=== PATIENT | female | born 1970 | race Caucasian/White ===

== ENCOUNTER 2017-05-12 23:59 | Emergency (ER) | payer BC ==
[~2017-05-12] VITALS: Ht 167.6 cm; Wt 136.1 kg
[2017-05-13] MEDS ORDERED: PROVIL200 MG PO (00:21)
[2017-05-13] MEDS ORDERED: PROAIR HFA8.5 GM INH (00:21)
--- NOTE | 2017-05-13 17:03 | EKG ---
[facility] [address] [facility] [place] [address] Signed Sinus rhythm with 1st degree AV block Otherwise normal ECG No previous ECGs available Confirmed by ELANA HAMILTON MD ([id number]) on 05/13/2017 5:03:05 PM Electronically Signed By: ELANA HAMILTON MD 05/13/17 1703 PATIENT NAME: RAI FONTANEZN Electrocardiogram DATE OF : 74 PHYSICIAN: ELANA HAMILTON MD REPORT #: [id number] REPORT IS CONFIDENTIAL AND NOT TO BE RELEASED WITHOUT AUTHORIZATION
== END 2017-05-13 02:23 | disposition home or self-care (01) ==
LOC: ED 23:59
DX: F41.8 Other specified anxiety disorders (principal); J45.909 Unspecified asthma, uncomplicated; F17.200 Nicotine dependence, unspecified, uncomplicated; Z87.442 Personal history of urinary calculi; Z90.49 Acquired absence of other specified parts of digestive tract; Z88.8 Allergy status to other drugs, medicaments and biological substances; Z88.1 Allergy status to other antibiotic agents; Z88.2 Allergy status to sulfonamides; Z79.899 Other long term (current) drug therapy
CPT/HCPCS: 36415; 71010; 80053; 84484; 85025; 85379; 93005; 93010; 96372; 99284; J2060

== ENCOUNTER 2018-05-24 13:29 | Emergency (ER) | payer OTHER ==
[~2018-05-24] VITALS: Ht 167.6 cm; Wt 136.1 kg
[~2018-05-24 13:29] MED LIST: PROAIR HFA8.5 GM INH; PROVIL200 MG PO
[2018-05-24] MEDS ORDERED: KETOROLAC TROME10 MG PO (14:12)
== END 2018-05-24 14:21 | disposition home or self-care (01) ==
LOC: ED 13:29
DX: S83.92XA Sprain of unspecified site of left knee, initial encounter (principal); F17.200 Nicotine dependence, unspecified, uncomplicated; E66.01 Morbid (severe) obesity due to excess calories; Z88.1 Allergy status to other antibiotic agents; Z88.2 Allergy status to sulfonamides; Z88.8 Allergy status to other drugs, medicaments and biological substances; X58.XXXA Exposure to other specified factors, initial encounter
CPT/HCPCS: 73560; 96372; 99283; J1885

== ENCOUNTER → 2019-03-21 | Emergency (ER) | payer OTHER ==
[~2019-03-21] VITALS: Ht 170.2 cm; Wt 172.4 kg
[~2019-03-21] MED LIST changes: +CENTRUM VITAM200 MCG PO; +KETOROLAC TROME10 MG PO; +PENICILLIN V P500 MG PO; +VITAMIN D250000 UNIT PO; +VITAMIN D32000 UNIT PO
--- NOTE | 2019-03-21 17:28 | EKG ---
[facility] [address] [facility] [place] [address] Signed Supraventricular tachycardia Nonspecific ST abnormality Abnormal ECG No previous ECGs available Confirmed by RAEGAN KOWALSKI DO ([id number]) on 03/21/2019 5:28:35 PM Electronically Signed By: RAEGAN KOWALSKI DO 03/21/19 1728 PATIENT NAME: RAI FONTANEZ Electrocardiogram DATE OF : 74 PHYSICIAN: RAEGAN KOWALSKI DO REPORT #: [id number] REPORT IS CONFIDENTIAL AND NOT TO BE RELEASED WITHOUT AUTHORIZATION
== END ==
LOC: ED 00:18
DX: F41.0 Panic disorder [episodic paroxysmal anxiety] (principal); J45.909 Unspecified asthma, uncomplicated; E66.01 Morbid (severe) obesity due to excess calories; F17.200 Nicotine dependence, unspecified, uncomplicated; Z88.8 Allergy status to other drugs, medicaments and biological substances; Z88.2 Allergy status to sulfonamides; Z88.1 Allergy status to other antibiotic agents; Z79.899 Other long term (current) drug therapy
CPT/HCPCS: 36415; 71045; 80053; 84484; 85025; 93005; 93010; 96361; 96374; 99285-25; J2060; J7030

== ENCOUNTER 2019-05-21 14:56 | Emergency (ER) | payer OTHER ==
[~2019-05-21] VITALS: Ht 170.2 cm; Wt 172.4 kg
== END 2019-05-21 16:51 | disposition home or self-care (01) ==
LOC: ED 14:56
DX: T63.441A Toxic effect of venom of bees, accidental (unintentional), initial encounter (principal); J45.909 Unspecified asthma, uncomplicated; Z87.442 Personal history of urinary calculi; Z87.891 Personal history of nicotine dependence; Z88.1 Allergy status to other antibiotic agents; Z88.2 Allergy status to sulfonamides; Z88.5 Allergy status to narcotic agent; Z88.0 Allergy status to penicillin
CPT/HCPCS: 99282

== ENCOUNTER 2021-08-30 15:16 | Emergency (ER) | payer OTHER ==
[~2021-08-30] VITALS: Ht 170.2 cm; Wt 195.0 kg
--- OUTSIDE RECORDS SUMMARY | 2021-08-30 15:18 | XMS ---
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 Risa has no Care Guidelines for this patient. Ruma VISIT COUNT (12 MO.) 1 [facility] TOTAL 1 NOTE: Visits indicate total known visits. ED/C VISIT TRACKING (12 MO.) 08/30/2021 15:16 [facility] [place] TYPE: Emergency COMPLAINT: - FALL INPATIENT VISIT TRACKING (12 MO.) No inpatient visits to display in this time frame [id number]
[2021-08-30] MEDS ORDERED: AMITRIPTYLINE150 MG PO (16:03)
[2021-08-30] MEDS ORDERED: DULOXETINE HCL60 MG PO (16:03)
[2021-08-30] MEDS ORDERED: METOPROLOL SUCC25 MG PO (16:03)
[2021-08-30] MEDS ORDERED: CHLORTHALIDONE25 MG (16:04)
[2021-08-30] MEDS ORDERED: BUSPIRONE HCL10 MG PO (16:05)
[2021-08-30] MEDS ORDERED: PRIMIDONE50 MG PO (16:05)
[2021-08-30] MEDS ORDERED: GABAPENTIN300 MG PO (16:05)
--- NOTE | 2021-08-30 21:22 | EKG ---
[facility] [address] [facility] [place], [place] [address] Signed Sinus rhythm with 1st degree AV block Otherwise normal ECG When compared with ECG of 21-MAR-2019 00:22, ND interval has increased Confirmed by RAEGAN KOWALSKI DO ([id number]) on 08/30/2021 9:22:10 PM Electronically Signed By: RAEGAN KOWALSKI DO 08/30/212121 PATIENT NAME: RAI FONTANEZ Electrocardiogram DATE OF : 74 PHYSICIAN: RAEGAN KOWALSKI DO REPORT #: [id number] REPORT IS CONFIDENTIAL AND NOT TO BE RELEASED WITHOUT AUTHORIZATION
== END 2021-08-30 19:14 | disposition home or self-care (01) ==
LOC: ED 15:16
DX: S09.90XA Unspecified injury of head, initial encounter (principal); S40.011A Contusion of right shoulder, initial encounter; J45.909 Unspecified asthma, uncomplicated; E66.01 Morbid (severe) obesity due to excess calories; Z87.891 Personal history of nicotine dependence; Z88.8 Allergy status to other drugs, medicaments and biological substances; Z88.2 Allergy status to sulfonamides; Z88.1 Allergy status to other antibiotic agents; Z79.899 Other long term (current) drug therapy; R55 Syncope and collapse; W18.30XA Fall on same level, unspecified, initial encounter
CPT/HCPCS: 70450; 72125; 73030; 80053; 85025; 93005; 93010; 99285-25; A9270

== ENCOUNTER 2022-05-02 14:27 | Emergency (ER) | payer OTHER ==
[~2022-05-02] VITALS: Ht 170.2 cm; Wt 195.0 kg
[~2022-05-02 14:27] MED LIST changes: +AMITRIPTYLINE150 MG PO; +BUSPIRONE HCL10 MG PO; +CHLORTHALIDONE25 MG; +DULOXETINE HCL60 MG PO; +GABAPENTIN300 MG PO; +METOPROLOL SUCC25 MG PO; +PRIMIDONE50 MG PO
--- OUTSIDE RECORDS SUMMARY | 2022-05-02 14:30 | XMS ---
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 Risa has no Care Guidelines for this patient. Ruma VISIT COUNT (12 MO.) 2 [facility] TOTAL 2 NOTE: Visits indicate total known visits. ED/C VISIT TRACKING (12 MO.) 05/02/2022 14:29 [facility] [place] TYPE: Emergency COMPLAINT: - R LEG LUMP, L FOOT SWOLLEN, SOB 08/30/2021 15:16 [facility] [place] TYPE: Emergency COMPLAINT: - FALL DIAGNOSES: - Fall on same level, unspecified, initial encounter - Unspecified injury of head, initial encounter - Allergy status to other antibiotic agents - Other detention (current) drug therapy - Allergy status to other drugs, medicaments and biological substances - Pain in right shoulder - Syncope and collapse - Contusion of right shoulder, initial encounter - Personal history of nicotine dependence - Morbid (severe) obesity due to excess calories - Allergy status to sulfonamides - Unspecified asthma, uncomplicated INPATIENT VISIT TRACKING (12 MO.) No inpatient visits to display in this time frame [id number]
[2022-05-02] MEDS ORDERED: ELIQUIS5 MG PO (20:26)
--- NOTE | 2022-05-03 07:45 | EKG ---
[facility] [address] [place], [place] [address] Signed Sinus tachycardia with 1st degree AV block Otherwise normal ECG When compared with ECG of 30-AUG-2021 18:08, No significant change was found Confirmed by RAFAELA SMITH MD ([id number]) on 05/03/2022 7:44:54 AM Electronically Signed By: RAFAELA SMITH MD 05/03/22 0745 PATIENT NAME: RAI FONTANEZ Electrocardiogram DATE OF : 74 PHYSICIAN: RAFAELA SMITH MD REPORT #: [id number] REPORT IS CONFIDENTIAL AND NOT TO BE RELEASED WITHOUT AUTHORIZATION
== END 2022-05-02 21:09 | disposition home or self-care (01) ==
LOC: ED 14:27
DX: I26.99 Other pulmonary embolism without acute cor pulmonale (principal); J45.909 Unspecified asthma, uncomplicated; E66.01 Morbid (severe) obesity due to excess calories; Z87.891 Personal history of nicotine dependence; Z88.8 Allergy status to other drugs, medicaments and biological substances; Z88.2 Allergy status to sulfonamides; Z88.1 Allergy status to other antibiotic agents; Z79.899 Other long term (current) drug therapy
CPT/HCPCS: 36415; 71045; 71260; 80053; 83880; 85025; 85379; 93005; 93010; 99285-25; Q9967

== ENCOUNTER 2022-09-08 20:40 | Emergency (ER) | payer OTHER ==
[~2022-09-08] VITALS: Ht 170.2 cm; Wt 195.0 kg
[~2022-09-08 20:40] MED LIST changes: +ELIQUIS5 MG PO
--- OUTSIDE RECORDS SUMMARY | 2022-09-08 20:44 | XMS ---
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 - Patient with suicidal and/or homicidal ideations eloped. - Patient eloped with IV in place. Details: PATIENT LWBS [facility] There are no care providers on record at this time. Risa has no Care Guidelines for this patient. E.D. VISIT COUNT (12 MO.) 3 [facility]. TOTAL 3 NOTE: Visits indicate total known visits. ED/[facility] VISIT TRACKING (12 MO.) 09/08/2022 20:[address] [facility] [place] TYPE: Emergency COMPLAINT: - SOB AND COUGH 07/06/2022 20:[address] [facility] [place] [place] TYPE: Emergency COMPLAINT: - L KNEE PAIN 05/02/2022 14:[address] [facility] 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
[2022-09-08] MEDS ORDERED: TAMIFLU75 MG PO (23:39)
[2022-09-08] MEDS ORDERED: PREDNISONE20 MG PO (23:40)
[2022-09-08] MEDS ORDERED: PROAIR HFA8.5 GM INH (23:41)
== END 2022-09-09 00:25 | disposition home or self-care (01) ==
LOC: ED 20:40
DX: J10.1 Influenza due to other identified influenza virus with other respiratory manifestations (principal); E86.0 Dehydration; J45.909 Unspecified asthma, uncomplicated; Z87.891 Personal history of nicotine dependence; Z88.2 Allergy status to sulfonamides; Z88.1 Allergy status to other antibiotic agents; Z88.8 Allergy status to other drugs, medicaments and biological substances; Z79.899 Other long term (current) drug therapy; Z79.01 Long term (current) use of anticoagulants; Z20.822 Contact with and (suspected) exposure to COVID-19
CPT/HCPCS: 36415; 71045; 80053; 85025; 87502; 94640; 96361; 96374; 99285-25; J2930; J7121; U0003

== ENCOUNTER 2023-03-29 10:48 | Emergency (ER) | payer OTHER ==
[~2023-03-29] VITALS: Ht 170.2 cm; Wt 181.4 kg
--- OUTSIDE RECORDS SUMMARY | ~2023-03-29 | XMS | Continuity of Care Document ---
Demographics + + + | Address | [address] | | | [place] [address] | + + + | Preferred Language | Unknown | + + + | Marital Status | | + + + | Shinto Affiliation | Unknown | + + + | Race | White | + + + | Ethnic Group | Not or | + + + Author + + + | Author | [facility] | + + + | Organization | [facility] | + + + | Address | [address] [facility] | | | [place] [address] | + + + | Phone | | + + + Care Team Providers + + + + | Care Construction Foreman Name | Role | Phone | + + + + Unavailable | Unavailable | + + + + Unavailable | Unavailable | + + + + Allergies and Intolerances + + + + + | date | description | facility | type | + + + + + | (no date) | Sulfamethoxazole | [facility] | (unknown) | | | | Hospital | | + + + + + | (no date) | Trimethoprim | [facility] | (unknown) | | | | Hospital | | + + + + + | (no date) | Urticaria | [facility] | (unknown) | | | | Hospital | | + + + + + | (no date) | Mild | [facility] | (unknown) | | | | Hospital | | + + + + + | (no date) | Droperidol | [facility] | (unknown) | | | | Hospital | | + + + + + | (no date) | Ampicillin | [facility] | (unknown) | | | | Hospital | | + + + + + | (no date) | Trimethoprim | [facility] | (unknown) | | | | Hospital | | + + + + + | (no date) | Sulfamethoxazole | [facility] | (unknown) | | | | Hospital | | + + + + + | (no date) | Droperidol | [facility] | (unknown) | | | | Hospital | | + + + + + | (no date) | Ampicillin | [facility] | (unknown) | | | | Hospital | | + + + + + | (no date) | Ampicillin | [facility] | (unknown) | | | | Hospital | | + + + + + | (no date) | Trimethoprim | [facility] | (unknown) | | | | Hospital | | + + + + + | (no date) | Sulfamethoxazole | [facility] | (unknown) | | | | Hospital | | + + + + + | (no date) | Droperidol | [facility] | (unknown) | | | | Hospital | | + + + + + Encounters No information. Functional Status No information. Immunizations No information. Medications + + + + | date | description | facility | + + + + | 2022-05-02 00:00 | APIXABAN | [facility] | + + + + | 2022-07-07 00:00 | ERGOCALCIFEROL (VITAMIN | [facility] | | | D2) | | + + + + | 2022-09-09 00:00 | ERGOCALCIFEROL (VITAMIN | [facility] | | | D2) | | + + + + | 2022-10-25 00:00 | ERGOCALCIFEROL (VITAMIN | [facility] | | | D2) | | + + + + | 2022-07-07 00:00 | PRIMIDONE | [facility] | + + + + | 2022-09-09 00:00 | PRIMIDONE | [facility] | + + + + | 2022-10-25 00:00 | PRIMIDONE | [facility] | + + + + | 2022-09-08 00:00 | OSELTAMIVIR PHOSPHATE | [facility] | + + + + | 2022-07-07 00:00 | GABAPENTIN | [facility] | + + + + | 2022-09-09 00:00 | GABAPENTIN | [facility] | + + + + | 2022-10-25 00:00 | GABAPENTIN | [facility] | + + + + | 2022-07-07 00:00 | IBUPROFEN | [facility] | + + + + | 2022-09-09 00:00 | IBUPROFEN | [facility] | + + + + | 2022-10-25 00:00 | IBUPROFEN | [facility] | + + + + | 2022-09-08 00:00 | predniSONE | [facility] | + + + + | 2022-07-07 00:00 | DULOXETINE HCL | [facility] | + + + + | 2022-09-09 00:00 | DULOXETINE HCL | [facility] | + + + + | 2022-10-25 00:00 | DULOXETINE HCL | [facility] | + + + + | 2022-07-07 00:00 | ALBUTEROL SULFATE | [facility] | + + + + | 2022-09-08 00:00 | ALBUTEROL SULFATE | [facility] | + + + + | 2022-09-09 00:00 | ALBUTEROL SULFATE | [facility] | + + + + | 2022-10-25 00:00 | ALBUTEROL SULFATE | [facility] | + + + + | 2022-07-07 00:00 | CHOLECALCIFEROL (VITAMIN | [facility] | | | D3) | | + + + + | 2022-09-09 00:00 | CHOLECALCIFEROL (VITAMIN | [facility] | | | D3) | | + + + + | 2022-10-25 00:00 | CHOLECALCIFEROL (VITAMIN | [facility] | | | D3) | | + + + + | 2018-05-24 00:00 | KETOROLAC TROMETHAMINE | [facility] | + + + + | 2022-07-07 00:00 | PENICILLIN V POTASSIUM | [facility] | + + + + | 2022-09-09 00:00 | PENICILLIN V POTASSIUM | [facility] | + + + + | 2022-10-25 00:00 | PENICILLIN V POTASSIUM | [facility] | + + + + | 2022-07-07 00:00 | AMITRIPTYLINE HCL | [facility] | + + + + | 2022-09-09 00:00 | AMITRIPTYLINE HCL | [facility] | + + + + | 2022-10-25 00:00 | AMITRIPTYLINE HCL | [facility] | + + + + | 2022-07-07 00:00 | BUSPIRONE HCL | [facility] | + + + + | 2022-09-09 00:00 | BUSPIRONE HCL | [facility] | + + + + | 2022-10-25 00:00 | BUSPIRONE HCL | [facility] | + + + + | 2022-07-07 00:00 | METOPROLOL SUCCINATE | [facility] | + + + + | 2022-09-09 00:00 | METOPROLOL SUCCINATE | [facility] | + + + + | 2022-10-25 00:00 | METOPROLOL SUCCINATE | [facility] | + + + + Problems + + + + | date | description | facility | + + + + | 2017-05-13 00:00 | Situational anxiety | [facility] | + + + + | 2018-05-24 00:00 | Sprain of left knee | [facility] | + + + + | 2019-03-21 00:00 | Panic attack | [facility] | + + + + | 2021-08-30 00:00 | Syncope | [facility] | + + + + | 2021-08-30 00:00 | Injury of head | [facility] | + + + + | 2021-08-30 00:00 | Contusion of shoulder | [facility] | + + + + | 2022-05-02 00:00 | Pulmonary embolism | [facility] | + + + + | 2022-07-07 00:00 | Patient left without being | [facility] | | | seen | | + + + + | 2022-09-08 00:00 | Dehydration | [facility] | + + + + | 2022-09-08 00:00 | Influenza due to influenza | [facility] | | | virus, type A, human | | + + + + Procedures No information. Results/Labs No information. Social History No information. Vital Signs + + + +---------+ | date | measurement | value | units | + + + +---------+ | 2022-07-06 00:00 | BMI | 67.3 | kg/m2 | + + + +---------+ | 2022-07-06 00:00 | BP_diastolic | 90 | mmHg | + + + +---------+ | 2022-07-06 00:00 | BP_systolic | 131 | mmHg | + + + +---------+ | 2022-07-06 00:00 | heart_rate | 113 | /min | + + + +---------+ | 2022-07-06 00:00 | height_metric | 170.18 | cm | + + + +---------+ | 2022-07-06 00:00 | height_standard | 67 | in | + + + +---------+ | 2022-07-06 00:00 | o2_saturation | 94 | % | + + + +---------+ | 2022-07-06 00:00 | respiration_rate | 20 | /min | + + + +---------+ | 2022-07-06 00:00 | temperature_metric | 36.72 | C | | | | | | + + + +---------+ | 2022-07-06 00:00 | | 98.1 | F | | | temperature_standar | | | | | d | | | + + + +---------+ | 2022-07-06 00:00 | weight_metric | 195.04 | kg | + + + +---------+ | 2022-07-06 00:00 | weight_standard | 429.99 | lb | + + + +---------+ | 2022-07-06 00:00 | weight_standard | 430 | lb | + + + +---------+ | 2022-09-08 00:00 | BMI | 67.3 | kg/m2 | + + + +---------+ | 2022-09-08 00:00 | height_metric | 170.18 | cm | + + + +---------+ | 2022-09-08 00:00 | height_standard | 67 | in | + + + +---------+ | 2022-09-08 00:00 | weight_metric | 195.04 | kg | + + + +---------+ | 2022-09-08 00:00 | weight_standard | 429.99 | lb | + + + +---------+ | 2022-09-08 00:00 | weight_standard | 430 | lb | + + + +---------+ | 2022-09-09 00:00 | BP_diastolic | 90 | mmHg | + + + +---------+ | 2022-09-09 00:00 | BP_systolic | 144 | mmHg | + + + +---------+ | 2022-09-09 00:00 | heart_rate | 124 | /min | + + + +---------+ | 2022-09-09 00:00 | o2_saturation | 93 | % | + + + +---------+ | 2022-09-09 00:00 | respiration_rate | 18 | /min | + + + +---------+ | 2022-09-09 00:00 | temperature_metric | 37.39 | C | | | | | | + + + +---------+ | 2022-09-09 00:00 | | 99.3 | F | | | temperature_standar | | | | | d | | | + + + +---------+ | 2022-10-25 00:00 | BMI | 67.3 | kg/m2 | + + + +---------+ | 2022-10-25 00:00 | BP_diastolic | 100 | mmHg | + + + +---------+ | 2022-10-25 00:00 | BP_systolic | 145 | mmHg | + + + +---------+ | 2022-10-25 00:00 | heart_rate | 98 | /min | + + + +---------+ | 2022-10-25 00:00 | height_metric | 170.18 | cm | + + + +---------+ | 2022-10-25 00:00 | height_standard | 67 | in | + + + +---------+ | 2022-10-25 00:00 | o2_saturation | 99 | % | + + + +---------+ | 2022-10-25 00:00 | respiration_rate | 16 | /min | + + + +---------+ | 2022-10-25 00:00 | temperature_metric | 36.67 | C | | | | | | + + + +---------+ | 2022-10-25 00:00 | | 98 | F | | | temperature_standar | | | | | d | | | + + + +---------+ | 2022-10-25 00:00 | weight_metric | 195.04 | kg | + + + +---------+ | 2022-10-25 00:00 | weight_standard | 429.99 | lb | + + + +---------+ | 2022-10-25 00:00 | weight_standard | 430 | lb | + + + +---------+"
--- OUTSIDE RECORDS SUMMARY | ~2023-03-29 | XMS | Continuity of Care Document ---
Demographics + + + | Address | [address] | | | [place] [address] | + + + | Preferred Language | Unknown | + + + | Marital Status | | + + + | Islam Affiliation | Unknown | + + + | Race | White | + + + | Ethnic Group | Not or | + + + Author + + + | Author | [facility] | + + + | Organization | [facility] | + + + | Address | [address] | | | [place] [address] | + + + | Phone | | + + + Care Team Providers + + + + | Care Tracing Lathe Set Up Operator Name | Role | Phone | + + + + Unavailable | Unavailable | + + + + Unavailable | Unavailable | + + + + Allergies and Intolerances + + + + + | date | description | facility | type | + + + + + | (no date) | Sulfamethoxazole | [facility] | (unknown) | | | | Hospital | | + + + + + | (no date) | Trimethoprim | [facility] | (unknown) | | | | Hospital | | + + + + + | (no date) | Urticaria | [facility] | (unknown) | | | | Hospital | | + + + + + | (no date) | Mild | [facility] | (unknown) | | | | Hospital | | + + + + + | (no date) | Droperidol | [facility] | (unknown) | | | | Hospital | | + + + + + | (no date) | Ampicillin | [facility] | (unknown) | | | | Hospital | | + + + + + | (no date) | Trimethoprim | [facility] | (unknown) | | | | Hospital | | + + + + + | (no date) | Sulfamethoxazole | [facility] | (unknown) | | | | Hospital | | + + + + + | (no date) | Droperidol | [facility] | (unknown) | | | | Hospital | | + + + + + | (no date) | Ampicillin | [facility] | (unknown) | | | | Hospital [...] | (no date) | Sulfamethoxazole | [facility] | (unknown) | | [...] + | 2022-05-02 00:00 | APIXABAN | [facility] | + + + + | 2022-07-07 00:00 | ERGOCALCIFEROL (VITAMIN | [facility] | | | D2) | | + + + + | 2022-09-09 00:00 | ERGOCALCIFEROL (VITAMIN | [facility] | | | D2) | | + + + + | 2022-10-25 00:00 | ERGOCALCIFEROL (VITAMIN | [facility] | | | D2) | | + + + + | 2022-07-07 00:00 | PRIMIDONE | [facility] | + + + + | 2022-09-09 00:00 | PRIMIDONE | [facility] | + + + + | 2022-10-25 00:00 | PRIMIDONE | [facility] | + + + + | 2022-09-08 00:00 | OSELTAMIVIR PHOSPHATE | [facility] | + + + + | 2022-07-07 00:00 | GABAPENTIN | [facility] | + + + + | 2022-09-09 00:00 | GABAPENTIN | [facility] | + + + + | 2022-10-25 00:00 | GABAPENTIN | [facility] | + + + + | 2022-07-07 00:00 | IBUPROFEN | [facility] | + + + + | 2022-09-09 00:00 | IBUPROFEN | [facility] | + + + + | 2022-10-25 00:00 | IBUPROFEN | [facility] | + + + + | 2022-09-08 00:00 | predniSONE | [facility] | + + + + | 2022-07-07 00:00 | DULOXETINE HCL | [facility] | + + + + | 2022-09-09 00:00 | DULOXETINE HCL | [facility] | + + + + | 2022-10-25 00:00 | DULOXETINE HCL | [facility] | + + + + | 2022-07-07 00:00 | ALBUTEROL SULFATE | [facility] | + + + + | 2022-09-08 00:00 | ALBUTEROL SULFATE | [facility] | + + + + | 2022-09-09 00:00 | ALBUTEROL SULFATE | [facility] | + + + + | 2022-10-25 00:00 | ALBUTEROL SULFATE | [facility] | + + + + | 2022-07-07 00:00 | CHOLECALCIFEROL (VITAMIN | [facility] | | | D3) | | + + + + | 2022-09-09 00:00 | CHOLECALCIFEROL (VITAMIN | [facility] | | | D3) | | + + + + | 2022-10-25 00:00 | CHOLECALCIFEROL (VITAMIN | [facility] | | | D3) | | + + + + | 2018-05-24 00:00 | KETOROLAC TROMETHAMINE | [facility] | + + + + | 2022-07-07 00:00 | PENICILLIN V POTASSIUM | [facility] | + + + + | 2022-09-09 00:00 | PENICILLIN V POTASSIUM | [facility] | + + + + | 2022-10-25 00:00 | PENICILLIN V POTASSIUM | [facility] | + + + + | 2022-07-07 00:00 | AMITRIPTYLINE HCL | [facility] | + + + + | 2022-09-09 00:00 | AMITRIPTYLINE HCL | [facility] | + + + + | 2022-10-25 00:00 | AMITRIPTYLINE HCL | [facility] | + + + + | 2022-07-07 00:00 | BUSPIRONE HCL | [facility] | + + + + | 2022-09-09 00:00 | BUSPIRONE HCL | [facility] | + + + + | 2022-10-25 00:00 | BUSPIRONE HCL | [facility] | + + + + | 2022-07-07 00:00 | METOPROLOL SUCCINATE | [facility] | + + + + | 2022-09-09 00:00 | METOPROLOL SUCCINATE | [facility] | + + + + | 2022-10-25 00:00 | METOPROLOL SUCCINATE | [facility] | + + + + Problems + + + + | date | description | facility | + + + + | 2017-05-13 00:00 | Situational anxiety | [facility] | + + + + | 2018-05-24 00:00 | Sprain of left knee | [facility] | + + + + | 2019-03-21 00:00 | Panic attack | [facility] | + + + + | 2021-08-30 00:00 | Syncope | [facility] | + + + + | 2021-08-30 00:00 | Injury of head | [facility] | + + + + | 2021-08-30 00:00 | Contusion of shoulder | [facility] | + + + + | 2022-05-02 00:00 | Pulmonary embolism | [facility] | + + + + | 2022-07-07 00:00 | Patient left without being | [facility] | | | seen | | + + + + | 2022-09-08 00:00 | Dehydration | [facility] | + + + + | 2022-09-08 00:00 | Influenza due to influenza | [facility] | | | virus, type A, human [...]
[~2023-03-29 10:48] MED LIST changes: +PREDNISONE20 MG PO; +TAMIFLU75 MG PO
[2023-03-29] MEDS ORDERED: METOPROLOL SUCC50 MG PO (13:11)
[2023-03-29 14:37] VITALS: BP 121/92
== END 2023-03-29 14:37 | disposition short-term general hospital (02) ==
LOC: ED 10:48
DX: R41.82 Altered mental status, unspecified (principal); R42 Dizziness and giddiness; E66.01 Morbid (severe) obesity due to excess calories; Z87.891 Personal history of nicotine dependence; Z88.0 Allergy status to penicillin; Z88.8 Allergy status to other drugs, medicaments and biological substances; Z79.01 Long term (current) use of anticoagulants
CPT/HCPCS: 36415; 51702; 70450; 70496; 70498; 71045; 80053; 81001; 85025; 85610; 85730; 99285 25; J2060; J2310; J2405; J7030; Q9967

== ENCOUNTER 2024-01-30 09:55 | Emergency (ER) | payer BC ==
[~2024-01-30] VITALS: Ht 170.2 cm; Wt 195.9 kg
[~2024-01-30 09:55] MED LIST changes: +CHLORTHALIDONE25 MG PO; +DULOXETINE HCL30 MG PO; +METOPROLOL SUCC50 MG PO; +MYSOLINE50 MG PO
--- OUTSIDE RECORDS SUMMARY | 2024-01-30 10:04 | XMS ---
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 - Patient eloped before treatment completed. - Patient with suicidal and/or homicidal ideations eloped. Details: Patient LWOB. CRITERIA MET - [facility] - 2 Visits in 30 Days CARE PROVIDERS -, [place]- Dentist: Blow Moulding Machine Operator [facility] PHONE: [phone] Risa has no Care Guidelines for this patient. [facility] VISIT COUNT (12 MO.) 3 [facility] [place] [address] [place] [address] TOTAL 4 NOTE: Visits indicate total known visits. ED/UCC VISIT TRACKING (12 MO.) 01/30/2024 09:56 [facility] TYPE: Emergency COMPLAINT: - LUNG PAIN, SOB, NAUSEA 01/27/2024 18:18 [facility] [place] TYPE: Emergency COMPLAINT: - CHEST PAIN 03/29/2023 16:21 [facility] TYPE: Emergency DIAGNOSES: - Altered mental status, unspecified - Cerebral infarction, unspecified - Altered Mental Status - Dizziness - Stroke syndrome 03/29/2023 10:48 [facility] TYPE: Emergency COMPLAINT: - ALTERED LOC DIAGNOSES: - Allergy status to other drugs, medicaments and biological substances - Allergy status to penicillin - Altered mental status, unspecified - Dizziness and giddiness - 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
[2024-01-30] MEDS ORDERED: HYDROCODONE/ACETA 5/325 TAB PO ONE (10:30)
[2024-01-30] MEDS ORDERED: MORPHINE SULFATE 4 MG/ML VIAL IV ONE (11:15)
[2024-01-30 11:23] LABS: BASOPHILS 0.9 % (0-2); HEMATOCRIT 39.6 % (35.0-50.0); HEMOGLOBIN 13.3 g/dL (12.0-18.0); LYMPHOCYTES 23.1 % (24-44); MCH 27.3 (27-36); MCHC 33.7 g/dl (30-36); MCV 81.2 fl (81-99); MONOCYTES 4.2 % (0-12); NEUTROPHILS 64.8 % (39-80); PLATELET COUNT 235 K/uL (140-440); RBC 4.88 M/ul (4.3-5.7); RDW 14.7 (10.5-15.0)
[2024-01-30] MEDS ORDERED: ondansetron HCL 4 MG/2 ML VIAL IV ONE (11:30)
[2024-01-30 11:33] LABS: PARTIAL THROMBOPLASTIN TIME 28.4 Sec (22.9-41.3)
[2024-01-30 11:34] LABS: INR 1.02 (0.80-1.30); PROTIME 12.7 Sec (11.2-14.2)
[2024-01-30 11:44] LABS: ALBUMIN/GLOBULIN RATIO 0.73 (1.1-2.4); ANION GAP 10.8 (7-21); BILIRUBIN, TOTAL 0.5 ng/dL (0.2-1.0); BUN/CREATININE RATIO 12.16 (6.0-28.6); CALCIUM 8.6 mg/dL (8.5-10.1); CREATININE, SERUM 0.74 mg/dL (0.55-1.02); POTASSIUM 3.8 mmol/L (3.5-5.1); PROTEIN, TOTAL 7.1 g/dL (6.4-8.2)
[2024-01-30] MEDS ORDERED: HYDROCODON-ACE1 EA10 PO (12:07)
[2024-01-30 12:20] VITALS: BP 136/92
--- NOTE | 2024-01-31 18:31 | EKG ---
[facility] [address] [facility] [place], [place] [address] Signed Sinus rhythm with 1st degree AV block Otherwise normal ECG When compared with ECG of 27-JAN-2024 18:21, T wave inversion no longer evident in Inferior leads Confirmed by KEITH RAMACHANDRAN MD ([id number]) on 01/31/2024 6:31:42 PM Electronically Signed By: KEITH RAMACHANDRAN 01/31/24 183 PATIENT NAME: RAI FONTANEZ Electrocardiogram DATE OF : 74 PHYSICIAN: KEITH RAMACHANDRAN REPORT #: [id number] REPORT IS CONFIDENTIAL AND NOT TO BE RELEASED WITHOUT AUTHORIZATION
== END 2024-01-30 12:29 | disposition home or self-care (01) ==
LOC: ED 09:55
PROVIDERS: Emergency Medicine
DX: I26.99 Other pulmonary embolism without acute cor pulmonale (principal); R09.1 Pleurisy; J45.909 Unspecified asthma, uncomplicated; E66.01 Morbid (severe) obesity due to excess calories; Z87.891 Personal history of nicotine dependence; Z88.2 Allergy status to sulfonamides; Z88.8 Allergy status to other drugs, medicaments and biological substances; Z88.1 Allergy status to other antibiotic agents; Z79.899 Other long term (current) drug therapy
CPT/HCPCS: 36415; 71045; 80053; 84484; 85025; 85610; 85730; 96374; 96375; 99285-25; J2270; J2405

== ENCOUNTER 2024-02-02 13:06 | Emergency (ER) | payer BC ==
[~2024-02-02] VITALS: Ht 170.2 cm; Wt 187.7 kg
[~2024-02-02 13:06] MED LIST changes: +HYDROCODON-ACE1 EA10 PO
--- OUTSIDE RECORDS SUMMARY | 2024-02-02 13:10 | XMS ---
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 - Patient eloped before treatment completed. - Patient with suicidal and/or homicidal ideations eloped. Details: Patient LWOB. CRITERIA MET - [facility] - 2 Visits in 30 Days CARE PROVIDERS -Brandt- Dentist: Bearing Ring Assembler [facility] PHONE: [phone] Risa has no Care Guidelines for this patient. Ruma [facility] (12 MO.) [facility] [address] [place] [address] TOTAL 5 NOTE: Visits indicate total known visits. ED/UCC VISIT TRACKING (12 MO.) 02/02/2024 13:06 [facility] TYPE: Emergency COMPLAINT: - BLOOD IN URINE 01/30/2024 09:56 [facility] TYPE: Emergency COMPLAINT: - LUNG PAIN, SOB, NAUSEA 01/27/2024 18:18 [facility] [place] TYPE: Emergency COMPLAINT: - CHEST PAIN 03/29/2023 16:21 [facility] TYPE: Emergency DIAGNOSES: - Altered mental status, unspecified - Cerebral infarction, unspecified - Altered Mental Status - Dizziness - Stroke syndrome 03/29/2023 10:48 [facility] TYPE: Emergency COMPLAINT: - ALTERED LOC DIAGNOSES: - Allergy status to other drugs, medicaments and biological substances - Allergy status to penicillin - Altered mental status, unspecified - Dizziness and giddiness - group home (current) use of anticoagulants - Morbid (severe) obesity due to excess calories - Personal history of nicotine dependence - Transient alteration of awareness INPATIENT VISIT TRACKING (12 MO.) 01/27/2024 18:19 [facility] TYPE: Observation COMPLAINT: - PE DIAGNOSES: - Allergy status to other drugs, medicaments and biological substances - Allergy status to penicillin - Allergy status to sulfonamides - Body mass index [BMI] 37.0-37.9, adult - Hyperventilation - Morbid (severe) obesity due to excess calories - Other pulmonary embolism without acute cor pulmonale - Personal history of nicotine dependence - Personal history of transient ischemic attack (TIA), and cerebral infarction without residual deficits - Procedure and treatment not carried out because of patient's decision for unspecified reasons - Shortness of breath - Unspecified asthma, uncomplicated [email or web address]
[2024-02-02 16:10] LABS: BILIRUBIN, URINE NEGATIVE (negative); BLOOD/HGB, URINE LARGE (Negative); KETONE, URINE SMALL (Negative); LEUK ESTERASE, URINE TRACE (negative); NITRITE, URINE POSITIVE (negative); PH, URINE 6.5 (5-7)
[2024-02-02 16:19] LABS: BACTERIA, URINE 1+ /hpf (negative); CASTS, URINE NONE SEEN \\lpf; COLLECTION TYPE, URINE CLEAN CATCH; CRYSTALS, URINE NONE SEEN (0-1+); EPITHELIAL CELLS, URINE SQUAMOUS 3+ /lpf (0-1+); RED BLOOD CELLS, URINE >50 /hpf (0-5); REFLEX CULTURE, URINE No (No)
[2024-02-02 17:42] LABS: BASOPHILS 0.7 % (0-2); EOSINOPHILS 7.4 % (0-6); HEMATOCRIT 41.1 % (35.0-50.0); HEMOGLOBIN 13.8 g/dL (12.0-18.0); LYMPHOCYTES 25.3 % (24-44); MCH 27.3 (27-36); MCHC 33.7 g/dl (30-36); MCV 81.1 fl (81-99); NEUTROPHILS 62.6 % (39-80); PLATELET COUNT 275 K/uL (140-440); RBC 5.06 M/ul (4.3-5.7); RDW 14.6 (10.5-15.0)
[2024-02-02 18:01] LABS: ALBUMIN 3.1 g/dL (3.4-5.0); ALBUMIN/GLOBULIN RATIO 0.7 (1.1-2.4); ANION GAP 10.6 (7-21); BILIRUBIN, TOTAL 0.5 ng/dL (0.2-1.0); BUN/CREATININE RATIO 13.95 (6.0-28.6); CALCIUM 9.1 mg/dL (8.5-10.1); CREATININE, SERUM 0.86 mg/dL (0.55-1.02); POTASSIUM 3.6 mmol/L (3.5-5.1); PROTEIN, TOTAL 7.5 g/dL (6.4-8.2)
[2024-02-02] MEDS ORDERED: CIPRO500 MG PO (19:26)
[2024-02-02] MEDS ORDERED: MACROBID 100 M100 MG PO (19:28)
[2024-02-02] MEDS ORDERED: CIPROFLOXACIN 500 MG TAB PO ONE (19:30)
[2024-02-02] MEDS ORDERED: NITROFURANTOIN MONOHYD MACROCR 100 MG CAP PO ONE (19:45)
[2024-02-02 19:50] VITALS: BP 129/85
== END 2024-02-02 19:50 | disposition home or self-care (01) ==
LOC: ED 13:06
PROVIDERS: Emergency Medicine
DX: N39.0 Urinary tract infection, site not specified (principal); I26.99 Other pulmonary embolism without acute cor pulmonale; J45.909 Unspecified asthma, uncomplicated; E66.01 Morbid (severe) obesity due to excess calories; Z68.44 Body mass index [BMI] 60.0-69.9, adult; Z88.2 Allergy status to sulfonamides; Z88.1 Allergy status to other antibiotic agents; Z88.0 Allergy status to penicillin; Z88.8 Allergy status to other drugs, medicaments and biological substances; Z87.891 Personal history of nicotine dependence; Z79.01 Long term (current) use of anticoagulants; Z79.899 Other long term (current) drug therapy
CPT/HCPCS: 36415; 80053; 81001; 85025

== ENCOUNTER 2024-03-19 18:01 | Emergency (ER) | payer BC ==
[~2024-03-19] VITALS: Ht 170.2 cm; Wt 158.9 kg
[~2024-03-19 18:01] MED LIST changes: +CIPRO500 MG PO; +MACROBID 100 M100 MG PO
[2024-03-19 18:46] LABS: HEMOGLOBIN 14.7 g/dL (12.0-18.0)
[2024-03-19 18:52] LABS: BASOPHILS 1.1 % (0-2); EOSINOPHILS 3.7 % (0-6); LYMPHOCYTES 26.7 % (24-44); MCH 26.7 (27-36); MCHC 32.6 g/dl (30-36); MCV 81.9 fl (81-99); MONOCYTES 5.5 % (0-12); PLATELET COUNT 256 K/uL (140-440); RBC 5.49 M/ul (4.3-5.7); RDW 15.5 (10.5-15.0)
[2024-03-19 19:02] LABS: ALBUMIN 3.3 g/dL (3.4-5.0); ALBUMIN/GLOBULIN RATIO 0.85 (1.1-2.4); ANION GAP 13.5 (7-21); BILIRUBIN, TOTAL 0.5 ng/dL (0.2-1.0); BUN/CREATININE RATIO 12.22 (6.0-28.6); CALCIUM 9.8 mg/dL (8.5-10.1); CREATININE, SERUM 0.9 mg/dL (0.55-1.02); MAGNESIUM 1.8 mg/dL (1.8-2.4); POTASSIUM 3.5 mmol/L (3.5-5.1); PROTEIN, TOTAL 7.2 g/dL (6.4-8.2)
[2024-03-19] MEDS ORDERED: LACTATED RINGER'S 1,000 ML IV ONE (20:15)
[2024-03-19 21:28] LABS: BILIRUBIN, URINE NEGATIVE (negative); BLOOD/HGB, URINE SMALL (Negative); KETONE, URINE NEGATIVE (Negative); LEUK ESTERASE, URINE NEGATIVE (negative); NITRITE, URINE NEGATIVE (negative); PH, URINE 6.5 (5-7)
[2024-03-19 21:47] LABS: BACTERIA, URINE RARE /hpf (negative); CASTS, URINE NONE SEEN \\lpf; COLLECTION TYPE, URINE CLEAN CATCH; CRYSTALS, URINE NONE SEEN (0-1+); EPITHELIAL CELLS, URINE SQUAMOUS 2+ /lpf (0-1+); REFLEX CULTURE, URINE No (No)
[2024-03-19 22:03] VITALS: BP 112/74
--- NOTE | 2024-03-20 23:26 | EKG ---
[facility] [address] [place] [address] Signed Sinus rhythm with 1st degree AV block Otherwise normal ECG When compared with ECG of 30-JAN-2024 10:21, No significant change was found Confirmed by Holden Ramos MD () on 03/20/2024 11:26:29 PM Electronically Signed By: HOLDEN RAMOS MD 03/20/24 2326 PATIENT NAME: RAI FONTANEZ Electrocardiogram DATE OF : 74 PHYSICIAN: HOLDEN RAMOS MD REPORT #: [id number] REPORT IS CONFIDENTIAL AND NOT TO BE RELEASED WITHOUT AUTHORIZATION
--- NOTE | 2024-03-20 23:28 | EKG ---
[facility] [address] [facility] [place] [address] Signed Sinus tachycardia with 1st degree AV block with premature atrial complexes T wave abnormality, consider inferior ischemia Abnormal ECG When compared with ECG of 19-MAR-2024 18:37, premature atrial complexes are now present Confirmed by Holden Ramos MD () on 03/20/2024 11:28:08 PM Electronically Signed By: HOLDEN RAMOS MD 03/20/24 2328 PATIENT NAME: RAI FONTANEZ Electrocardiogram DATE OF : 74 PHYSICIAN: HOLDEN RAMOS MD REPORT #: [id number] REPORT IS CONFIDENTIAL AND NOT TO BE RELEASED WITHOUT AUTHORIZATION
== END 2024-03-19 22:03 | disposition home or self-care (01) ==
LOC: ED 18:01
PROVIDERS: Internal Medicine
DX: R06.00 Dyspnea, unspecified (principal); E86.0 Dehydration; E66.01 Morbid (severe) obesity due to excess calories; Z86.73 Personal history of transient ischemic attack (TIA), and cerebral infarction without residual deficits; Z87.891 Personal history of nicotine dependence; Z88.8 Allergy status to other drugs, medicaments and biological substances; Z88.0 Allergy status to penicillin; Z79.01 Long term (current) use of anticoagulants; Z79.899 Other long term (current) drug therapy
CPT/HCPCS: 36415; 71045; 71260; 80053; 81001; 83735; 83880; 84484; 85025; 93005; 93010; 99285; J7121; Q9967

== ENCOUNTER 2024-05-26 14:07 | Emergency (ER) | payer BC ==
[~2024-05-26] VITALS: Ht 170.2 cm; Wt 179.6 kg
[~2024-05-26 14:07] MED LIST changes: +ALBUTEROL2.5 MG/3 M INH; +CLEARLAX119 GM PO; +FAMOTIDINE40 MG PO; +HYDROCODON-ACE1 EA14 PO; +HYDROXYZINE HCL50 MG PO; +JANTOVEN5 MG PO; +LIPITOR80 MG PO; +LOVENOX150 MG SUB-Q; +NYSTATIN15 GM TOP; +ONDANSETRON ODT8 MG PO; +SENNA8.6 MG PO; +TRAZODONE HCL50 MG PO; +WARFARIN SODIUM1 MG PO; +WARFARIN SODIUM5 MG PO
--- OUTSIDE RECORDS SUMMARY | 2024-05-26 14:13 | XMS ---
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 Ruma VISIT COUNT (12 MO.) 7 [facility] TOTAL 7 NOTE: Visits indicate total known visits. 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 - Morbid (severe) obesity due to excess calories - Other halfway (current) drug therapy - Pain in right arm - Personal history of nicotine dependence - Personal history of transient ischemic attack (TIA), and cerebral infarction without residual deficits 04/20/2024 12:42 [facility] TYPE: Emergency COMPLAINT: - RAPID HEART RATE DIAGNOSES: - Allergy status to other drugs, medicaments and biological substances - Allergy status to penicillin - Morbid (severe) obesity due to excess calories - Other forms of angina pectoris - Other forms of dyspnea - 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 - Personal history of nicotine dependence - Personal history of transient ischemic attack (TIA), and cerebral infarction without residual deficits 03/19/2024 18:02 [facility] TYPE: Emergency COMPLAINT: - SHORTNESS OF BREATH DIAGNOSES: - Allergy status to other drugs, medicaments and biological substances - Allergy status to penicillin - Dehydration - Dyspnea, unspecified - shelter (current) use of anticoagulants - Morbid (severe) obesity due to excess calories - Other halfway (current) drug therapy - Personal history of nicotine dependence - Personal history of transient ischemic attack (TIA), and cerebral infarction without residual deficits - Shortness of breath 02/02/2024 13:06 [facility] TYPE: Emergency COMPLAINT: - BLOOD IN URINE DIAGNOSES: - Allergy status to other antibiotic agents - Allergy status to other drugs, medicaments and biological substances - Allergy status to penicillin - Allergy status to sulfonamides - Body mass index [BMI] 60.0-69.9, adult - Gross hematuria - shelter (current) use of anticoagulants - Morbid (severe) obesity due to excess calories - Other halfway (current) drug therapy - Other pulmonary embolism without acute cor pulmonale - Personal history of nicotine dependence - Unspecified asthma, uncomplicated - Urinary tract infection, site not specified 01/30/2024 09:56 [facility] TYPE: Emergency COMPLAINT: - LUNG PAIN, SOB, NAUSEA DIAGNOSES: - Allergy status to other antibiotic agents - Allergy status to other drugs, medicaments and biological substances - Allergy status to sulfonamides - Chest pain, unspecified - Morbid (severe) obesity due to excess calories - 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 DIAGNOSES: - Acute ischemic heart disease, unspecified [facility] Int[facility] DIAGNOSES: - Acute ischemic heart disease, unspecified - Non-ST elevation (NSTEMI) myocardial infarction - Positive stress test, angina 01/27/2024 18:19 [facility] TYPE: Observation [...] Shortness of breath - Unspecified asthma, uncomplicated [email or web address]
[2024-05-26] MEDS ORDERED: ACETAMINOPHEN 500 MG TAB PO ONE (15:45)
[2024-05-26] MEDS ORDERED: DEXAMETHASONE SOD PHOS 10 MG/ML VIAL IV ONE (15:45)
[2024-05-26] MEDS ORDERED: SODIUM CHLORIDE 0.9% 1,000 ML IV ONE (15:45)
[2024-05-26] MEDS ORDERED: HYDROmorphone HCL 1 MG/ML SYR IV PRN (15:45)
[2024-05-26 15:57] LABS: BASOPHILS 0.5 % (0-2); EOSINOPHILS 2.6 % (0-6); HEMATOCRIT 44.5 % (35.0-50.0); HEMOGLOBIN 14.8 g/dL (12.0-18.0); LYMPHOCYTES 14.9 % (24-44); MCH 26.8 (27-36); MCHC 33.2 g/dl (30-36); MCV 80.6 fl (81-99); MONOCYTES 4.6 % (0-12); NEUTROPHILS 77.4 % (39-80); PLATELET COUNT 266 K/uL (140-440); RBC 5.52 M/ul (4.3-5.7)
[2024-05-26 16:08] LABS: INR 2.39 (0.80-1.30); PROTIME 25.1 Sec (11.2-14.2)
[2024-05-26 16:12] LABS: ALBUMIN 3.2 g/dL (3.4-5.0); ALBUMIN/GLOBULIN RATIO 0.71 (1.1-2.4); ANION GAP 7.6 (7-21); BILIRUBIN, TOTAL 0.7 ng/dL (0.2-1.0); BUN/CREATININE RATIO 12.9 (6.0-28.6); CALCIUM 9.4 mg/dL (8.5-10.1); CREATININE, SERUM 0.93 mg/dL (0.55-1.02); POTASSIUM 3.6 mmol/L (3.5-5.1); PROTEIN, TOTAL 7.7 g/dL (6.4-8.2)
[2024-05-26] MEDS ORDERED: PENICILLIN V P500 MG PO (20:26)
[2024-05-26] MEDS ORDERED: HYDROCODON-ACE1 EA11 PO (20:26)
[2024-05-26] MEDS ORDERED: HYDROCODONE BIT/ACETAMINOPHEN 5/325 MG 1 TAB HOME.PACK PO ONE (20:30)
[2024-05-26] MEDS ORDERED: PENICILLIN V POTASSIUM 500 MG TAB PO ONE (20:30)
[2024-05-26 20:39] VITALS: BP 120/83
== END 2024-05-26 20:35 | disposition home or self-care (01) ==
LOC: ED 14:07
PROVIDERS: Emergency Medicine
DX: J02.0 Streptococcal pharyngitis (principal); J45.909 Unspecified asthma, uncomplicated; E66.01 Morbid (severe) obesity due to excess calories; Z86.73 Personal history of transient ischemic attack (TIA), and cerebral infarction without residual deficits; Z87.891 Personal history of nicotine dependence; Z88.0 Allergy status to penicillin; Z88.8 Allergy status to other drugs, medicaments and biological substances; Z79.899 Other long term (current) drug therapy; Z79.01 Long term (current) use of anticoagulants; Z11.52 Encounter for screening for COVID-19
CPT/HCPCS: 36415; 80053; 85025; 85610; 87651; 96361; 96374; 96375; 99283-25; A9270; J1100; J1170; J7030; U0002